=== PATIENT | male | born 1975 | race Two or more races ===

== ENCOUNTER 2021-04-02 15:40 | Emergency (ER) | payer OTHER ==
[~2021-04-02] VITALS: Ht 175.3 cm; Wt 77.1 kg
[2021-04-02] MEDS ORDERED: XANAX0.25 MG (16:45)
[2021-04-02] MEDS ORDERED: EFFEXOR XR37.5 MG (16:46)
[2021-04-02] MEDS ORDERED: PROTONIX40 MG (16:46)
== END 2021-04-02 20:10 | disposition home or self-care (01) ==
LOC: ER 15:40
DX: S31.25XA Open bite of penis, initial encounter (principal); W54.0XXA Bitten by dog, initial encounter; Y93.89 Activity, other specified; Y92.832 Beach as the place of occurrence of the external cause; Y99.8 Other external cause status